=== PATIENT | female | born 2005 | race Caucasian/White ===

== ENCOUNTER 2025-02-04 06:45 | Emergency (ER) | payer OTHER, SELFPAY ==
[2025-02-04] VITALS (8 sets, daily range): BP systolic 97–123; BP diastolic 78–89; PULSE 66–93; RESP 16–17; TEMP 36.5; O2SAT 98–100
--- NOTE | ~2025-02-04 | XR_ITS ---
EXAMINATION: XR chest 2V DATE: 02/04/2025 08:03 INDICATION: Syncope TECHNIQUE: PA and lateral views of the chest were obtained. COMPARISON: None FINDINGS: The lungs are clear with no focal airspace opacities, pulmonary edema, pleural effusion or pneumothor ax. The cardiomediastinal silhouette is normal. Mild thoracolumbar levocurvature. IMPRESSION: 1. No acute cardiopulmonary disease. Reviewed, dictated and finalized at location A.
--- NOTE | 2025-02-04 06:52 | ECG_ITS ---
Test Date: 2025-02-04 06:59:04 Measurements Intervals [place] Rate: 75 P: 13 [place]: 142 QRS: 50 QRSD: 89 T: 14 QT: 354 QTc: 398 Interpretive Statements SINUS RHYTHM No previous ECG available for comparison Electronically Signed On 02-04-2025 22:25:14 CDT by Amanda Valera M.D.
[2025-02-04 07:05] LABS: Hematocrit 41.8 % (37.0-47.0); Hemoglobin 13.3 g/dL (12.0-15.0); Immature Granulocyte Percent A 0.2 % (0-0.5); Lymphocytes Absolute Auto 2.60 K/mm3 (0.9-3.2); Mean Corpuscular HGB Conc 31.8 g/dl (32-36); Mean Corpuscular Hemoglobin 28.5 pg (26-34); Mean Corpuscular Volume 89.5 fl (80-100); Nucleated Red Blood Cells Absolute Auto 0.000 K/mm3 (0.0-0.012); Nucleated Red Blood Cells Perc 0.0 % (0.0-0.2); Platelet Count Result 225 k/mm3 (150-375); Red Blood Count 4.67 M/mm3 (4.2-5.4); White Blood Count 5.6 K/mm3 (4.5-10.0)
[2025-02-04 07:17] LABS: Alanine Aminotransferase 33 U/L (6-35); Albumin Level 3.9 g/dL (3.5-5.1); Alkaline Phosphatase 62 U/L (38-126); Anion Gap 7 mmol/L (4-12); Aspartate Amino Transferase 38 U/L (14-36); Bilirubin,Total 0.3 mg/dL (0.2-1.3); Blood Urea Nitrogen 5 mg/dL (7-17); Calcium 9.2 mg/dL (8.4-10.2); Carbon Dioxide 25 mmol/L (22-30); Chloride 105 mmol/L (98-107); Estimated CRCL calculation 99 ml/min; Estimated Glomerular Filt Rate > 60; Glucose 100 mg/dL (65-110); Potassium 3.7 mmol/L (3.4-5.0); Sodium 137 mmol/L (137-145); Total Protein 7.0 g/dL (6.3-8.2)
--- NOTE | 2025-02-04 07:32 | ED_ITS ---
HPI - General Adult General Chief complaint: Syncope Stated complaint: syncope Time Seen by Provider: 02/04/25 06:54 History of Present Illness HPI narrative: 19-year-old female present to the emergency department for evaluation after having a syncopal episode. Patient does have prior history of syncope. Patient states she did not have breakfast or have anything to drink this morning. Patient states she was at work when she had onset of lightheaded dizziness and ringing of her ears, patient states that she was hoping this would pass and she did not sit down but she states the next thing she remembers she was waking up on the floor. Patient denies any pain or injury. Patient denies any previous cardiac history. Patient states she is not . Review of Systems 2 Review of Systems: All systems reviewed & are unremarkable except as noted in HPI and below Exam 2 Narrative: APPEARANCE: Well appearing, no pain, no distress, well-nourished. HEAD: normocephalic, atraumatic. EYES: PERRLA/EOMI, conjunctivae clear. NOSE: Normal no drainage EARS:TMS clear with good light reflex. THROAT: Pharynx clear, no exudate. NECK: Supple. No adenopathy, no masses. RESPIRATORY: Airway patent, respirations nonlabored. Clear to auscultation bilaterally, no rales, rhonchi, wheezing. CARDIOVASCULAR: Regular rate and rhythm without murmurs rubs or gallops. ABDOMINAL: Soft, nontender, nondistended, normal bowel sounds MUSCULOSKELETAL: Moves all extremities. Strength/ROM intact, No edema, No calf tenderness. NEURO: Alert. Cranial nerves II through XII intact. Good gait. Good coordination SKIN: Warm, dry. Normal Color Course Vital Signs Vital signs: Vital Signs Temperature 97.7 F 02/04/25 06:55 Pulse Rate 90 02/04/25 06:55 Respiratory Rate 17 02/04/25 06:55 Blood Pressure 111/82 02/04/25 06:55 Pulse Oximetry 100 02/04/25 06:55 Oxygen Delivery Room Air 02/04/25 06:55 Temperature 97.7 F 02/04/25 06:55 Pulse Rate 68 02/04/25 09:25 Respiratory Rate 16 02/04/25 09:25 Blood Pressure 100/81 02/04/25 09:25 Pulse Oximetry 98 02/04/25 09:25 Oxygen Delivery Room Air 02/04/25 06:55 Medical Decision Making MDM Narrative Medical decision making narrative: 19-year-old female present to the emergency department for evaluation for a syncopal episode. Patient is currently afebrile with no leukocytosis hemoglobin of 13.3. Patient has no acute abnormalities on her CMP and present test is negative. Chest x-ray shows no acute cardiopulmonary abnormality. EKG shows normal sinus rhythm. Patient did have positive orthostatic vital signs on arrival. Patient's vital signs did improve after rehydration. Patient was asymptomatic with further ambulation. Patient was encouraged close follow-up with primary care physician for additional outpatient cardiac testing and to follow balanced diet. Differential Diagnosis Differential Diagnosis: , vasovagal episode, orthostatic hypotension, cardiac syncope, ACS Vital Signs Vital Signs: Vital Signs Temperature 97.7 F 02/04/25 06:55 Pulse Rate 90 02/04/25 06:55 Respiratory Rate 17 02/04/25 06:55 Blood Pressure 111/82 02/04/25 06:55 Pulse Oximetry 100 02/04/25 06:55 Oxygen Delivery Room Air 02/04/25 06:55 Temperature 97.7 F 02/04/25 06:55 Pulse Rate 68 02/04/25 09:25 Respiratory Rate 16 02/04/25 09:25 Blood Pressure 100/81 02/04/25 09:25 Pulse Oximetry 98 02/04/25 09:25 Oxygen Delivery Room Air 02/04/25 06:55 Lab Data Lab results reviewed: Yes I reviewed the patient's lab results. 02/04/25 06:59 02/04/25 06:59 Labs: Lab Results 02/04/25 02/04/25 Range/Units 06:59 08:40 WBC 5.6 (4.5-10.0) K/mm3 RBC 4.67 (4.2-5.4) M/mm3 Hgb 13.3 (12.0-15.0) g/dL Hct 41.8 (37.0-47.0) % MCV 89.5 (80-100) fl MCH 28.5 (26-34) pg MCHC 31.8 L (32-36) g/dl RDW 13.4 (11.5-14.5) % Plt Count 225 (150-375) k/mm3 MPV 8.9 (7.4-10.4) fl Immature Gran % (Auto) 0.2 (0-0.5) % Neut % (Auto) 41.9 L (45.5-73.1) % Lymph % (Auto) 46.6 H (18.3-44.2) % Summers % (Auto) 8.8 H (2.6-8.5) % Eos % (Auto) 1.8 (0-4.4) % Baso % (Auto) 0.7 (0.2-1.2) % Lymph # (Auto) 2.60 (0.9-3.2) K/mm3 Summers # (Auto) 0.5 (0.1-0.6) K/mm3 Eos # (Auto) 0.1 (0-0.3) K/mm3 Baso # (Auto) 0.0 (0.0-0.1) K/mm3 Abs Immat Gran (auto) 0.01 (0.00-0.031) K/mm3 Absolute Neuts (auto) 2.3 (1.3-6.7) K/mm3 Absolute Nucleated RBC 0.000 (0.0-0.012) K/mm3 Nucleated RBC % 0.0 (0.0-0.2) % Sodium 137 (137-145) mmol/L Potassium 3.7 (3.4-5.0) mmol/L Chloride 105 (98-107) mmol/L Carbon Dioxide 25 (22-30) mmol/L Anion Gap 7 (4-12) mmol/L BUN 5 L (7-17) mg/dL Creatinine 0.72 (0.7-1.0) mg/dL Estim Creat Clear Calc 99 ml/min Estimated GFR > 60 (59 - ) Glucose 100 (65-110) mg/dL Calcium 9.2 (8.4-10.2) mg/dL Total Bilirubin 0.3 (0.2-1.3) mg/dL AST 38 H (14-36) U/L ALT 33 (6-35) U/L Alkaline Phosphatase 62 (38-126) U/L Total Protein 7.0 (6.3-8.2) g/dL Albumin 3.9 (3.5-5.1) g/dL POC Urine HCG, Qual Negative (Negative) Imaging Data Radiologist's impression: Impressions Chest X-Ray 02/04/25 08:11 IMPRESSION: 1. No acute cardiopulmonary disease. Discharge Plan Discharge Clinical Impression: Vasovagal syncope, Dehydration Patient Disposition: Home Condition: Stable Instructions: Antibiotic Form, Dehydration (ED), Syncope (ED) Additional Instructions: Drink plenty of fluids. Eat well-balanced diet. Have close follow-up with your primary care physician. Patient Language: Bulgarian Follow-up/Referrals: PHYSICIAN NOT ON STAFF,NONSTAFF [Non-Staff] -
[2025-02-04] MEDS: LACTATED RINGERS 1,000 ML 999 ML IV CONT (07:39)
[2025-02-04 08:48] LABS: BEDSIDEPREGUCG Negative (Negative)
== END 2025-02-04 09:25 | disposition home or self-care (01) ==
PROVIDERS: Emergency Medicine; Emergency Provider Emergency Medicine
DX: R55 Syncope and collapse (principal); E86.0 Dehydration
CPT/HCPCS: 36415; 71046; 80053; 81025; 85025; 93005; 96360; 99284; J7120